=== PATIENT | female | born 1980 | race Caucasian/White ===

== ENCOUNTER 2016-05-10 05:13 | Day surgery (SDC) | payer OTHER ==
[~2016-05-10] VITALS: Ht 170.2 cm; Wt 124.8 kg
[~2016-05-10 05:13] MED LIST: CYCL1TAB29 PO; PRED5PAK PO; TYLETAB34 PO
[2016-05-10] MEDS ORDERED: APREPITANT 40 MG CAP PO SCH (05:45)
[2016-05-10] MEDS ORDERED: INSULIN HUMAN REGULAR 1,000 UNITS/10 ML VIAL SQ PRN (05:45)
[2016-05-10] MEDS ORDERED: VITA100064 PO (06:18)
[2016-05-10] MEDS ORDERED: FOLI400T PO (06:18)
[2016-05-10 06:20] VITALS: BP 137/79; PULSE 69; RESP 20; TEMP 98.4; O2SAT 97
[2016-05-10] MEDS ORDERED: ACETAMINOPHEN 1000 MG/100 ML VIAL IV SCH (06:30)
[2016-05-10] MEDS ORDERED: metroNIDAZOLE 500 MG INJ 100 ML IV SCH (06:30)
[2016-05-10] MEDS ORDERED: ceFAZolin 2 GM PREMIX 50 ML IV SCH (06:30)
[2016-05-10] MEDS ORDERED: ONDANSETRON HCL 4 MG/2 ML VIAL IV PUSH SCH (06:30)
[2016-05-10] MEDS ORDERED: SCOPOLAMINE 1.5 MG PATCH T-DERMAL SCH (06:30)
[2016-05-10] MEDS ORDERED: BUPIVACAINE/EPINEPHRINE 0.25% PF 30 ML VIAL ONE (07:00)
[2016-05-10] MEDS ORDERED: METHYLENE BLUE 10 MG/ML VIAL ONE (07:01)
[2016-05-10] MEDS ORDERED: fentaNYL CITRATE 250 MCG/5 ML AMP ONE (07:02)
[2016-05-10] MEDS ORDERED: MIDAZOLAM HCL 2 MG/2 ML VIAL ONE (07:02)
[2016-05-10] MEDS ORDERED: FAMOTIDINE 20 MG/2 ML VIAL ONE (07:02)
[2016-05-10] MEDS ORDERED: DEXAMETHASONE SOD PHOS 4 MG/ML VIAL ONE (07:03)
[2016-05-10] MEDS ORDERED: SODIUM CHLORID 0.9% 500 ML IV SCH (07:30)
[2016-05-10] MEDS ORDERED: LACTATED RINGER'S 1000 ML IV SCH (07:30)
[2016-05-10] MEDS ORDERED: BUPIVACAINE/EPINEPHRINE 0.25% PF 30 ML VIAL INFIL ONE (07:48)
[2016-05-10] MEDS ORDERED: METHYLENE BLUE 100 MG/10 ML VIAL IV ONE (07:48)
[2016-05-10] MEDS ORDERED: ONDANSETRON HCL 4 MG/2 ML VIAL IV PRN ×2 (08:45→09:00)
[2016-05-10] MEDS ORDERED: SODIUM CHLORIDE 0.9% FLUSH 5 ML FLUSH IVF PRN (08:45)
[2016-05-10] MEDS ORDERED: Post-op Orders (for Pharmacy) MISC XX ONE (08:55)
[2016-05-10] MEDS ORDERED: SODIUM CHLORIDE 0.9% FLUSH 5 ML FLUSH IVF SCH (09:00)
[2016-05-10] MEDS ORDERED: ACETAMINOPHEN 325MG/HYDROcodone 7.5MG/15ML UDC PO PRN ×2 (09:00)
[2016-05-10] MEDS ORDERED: PANTOPRAZOLE SOD 40 MG DELAYED RELEASE TAB PO SCH (09:00)
[2016-05-10] MEDS ORDERED: HYDROmorphone HCL PF 1 MG/ML VIAL IV PUSH PRN (09:00)
[2016-05-10] MEDS ORDERED: ACETAMINOPHEN 1000 MG/100 ML VIAL IV PRN (09:00)
[2016-05-10] MEDS ORDERED: D5-1/2 NS + KCL 20 MEQ INJ 1,000 ML IV SCH (09:00)
[2016-05-10] MEDS ORDERED: diphenhydrAMINE HCL 50 MG/ML VIAL IV PRN (09:00)
[2016-05-10] MEDS ORDERED: diphenhydrAMINE HCL ELIXIR 12.5 MG/5 ML CUP PO PRN (09:00)
[2016-05-10] MEDS ORDERED: PANTOPRAZOLE SODIUM 40 MG VIAL IVP PRN (09:00)
[2016-05-10] MEDS ORDERED: *morphine SULFATE 8 MG/ML PERIprocedure ONLY ONE ×3 (09:08→10:42)
[2016-05-10] MEDS ORDERED: *PROMETHAZINE 25 MG/ML VIAL PERIprocedural use ONLY ONE (09:10)
[2016-05-10] MEDS: METOCLOPRAMIDE HCL 10 MG/2 ML VIAL IVS SCH ×2 (10:10→15:15)
[2016-05-10] MEDS ORDERED: *RESP: ALBUTEROL 2.5 MG/3 ML NEB (PRN) PERIprocedural Use ONLY NEB ONE (11:21)
[2016-05-10] MEDS ORDERED: NEOSTIGMINE 3 MG/3 ML SYR IV ONE (12:00)
[2016-05-10] MEDS ORDERED: PROPOFOL 200 MG/20 ML AMP IV ONE (12:00)
[2016-05-10] MEDS ORDERED: LACTATED RINGER'S 1000 ML INJ 1,000 ML IV ONE (12:00)
[2016-05-10] MEDS ORDERED: ONDANSETRON HCL 4 MG/2 ML VIAL IV PUSH ONE (12:00)
[2016-05-10] MEDS ORDERED: ENOXAPARIN SODIUM 40 MG/0.4 ML SYRINGE SQ SCH (13:00)
[2016-05-10 14:25] VITALS: BP 124/84; PULSE 75; RESP 16; TEMP 97.9; O2SAT 94
[2016-05-11] MEDS ORDERED: METOCLOPRAMIDE HCL 10 MG/2 ML VIAL IVS PRN (09:00)
--- NOTE | 2016-05-15 12:37 | MP ---
cc: NICK FAUSTIN DATE OF 1980 DATE OF OPERATION 05/10/2016 PREOPERATIVE DIAGNOSIS Morbid obesity with a BMI of 43. POSTOPERATIVE DIAGNOSIS Morbid obesity with a BMI of 43. PROCEDURE Laparoscopic vertical sleeve gastrectomy over 36-Emirati ViSiGi bougie. SURGEON Nick Faustin MD ANESTHESIA General endotracheal anesthesia. ESTIMATED BLOOD LOSS Scant. FINDINGS Fatty liver. SPECIMENS None. COMPLICATIONS None. PROCEDURE IN DETAIL The patient was brought to the operating room and placed on the operating table in supine position, bilateral sequential inflation device placed on lower extremities. General anesthesia was instituted. Antibiotics was initiated. The abdomen was prepped and draped sterilely. A point 15 cm distal to the xiphoid in the midline was anesthetized with 0.25% Marcaine with epinephrine. A skin incision was made, 5-mm OptiView port placed under direct vision and pneumoperitoneum created. Under direct vision, three 5-mm left upper quadrant, a 15-mm right upper quadrant, 5-mm right upper quadrant ports placed. Prior to placement of all ports the skin and peritoneum were anesthetized with 0.25% Marcaine with epinephrine. The patient was placed in reverse Trendelenburg position left side up, the Iman-Flex retractor was placed. The left lobe of the liver was retracted. The vasculature along the greater curvature of the stomach was using harmonic scalpel starting a distance 5-cm proximal to the pylorus and carried towards the angle of His. The angle of His was taken down bluntly. Posterior ligamentous attachments were sharply . A 36-Emirati ViSiGi bougie was placed at the start of the case, was placed on suction. Division of the stomach started 5 cm proximal to the pylorus and carried towards the angle of His to completely excise approximately 80% of the stomach. This was performed using an [place] Flex stapler at the pylorus. The first firing was with a black load, followed by a green load and four gold loads. All staple loads were reinforced with SeamGuard. A distance of 2 cm was left from the angle incisura and the staple line and a distance of 1 cm left from the GE junction and the staple line. The pylorus was then occluded, methylene blue tinged saline was instilled. There was no evidence of extravasation. The gastrocolic ligament was then sutured to the posterior leaflet of the SeamGuard using a 2-0 Vicryl suture in a running manner. Bleeding points were controlled with Evicel. The excised stomach was removed from the peritoneal cavity through the 15-mm port site in an Endopouch. The fascia at the 15-mm port site was approximated with 0 Vicryl suture. The CO2 was then released, all ports were removed, all skin incisions closed with 4-0 Monocryl. The abdominal wall was cleaned. A sterile dressing was placed. The patient was awakened and taken to the recovery room. MD NOLBERTO Bronson/SSB /11:55 AM /12:33 PM
--- NOTE | 2016-06-22 16:24 | HHI.DS ---
Discharge Summary Admission Date Discharge Date: May 10, 2016 Admitting Diagnosis Brief History 35-year-old female status post laparoscopic vertical sleeve gastrectomy PE at Discharge Alert and awake Cardio: Regular rate and rhythm Respiratory: Clear to auscultation bilaterally Abdomen: Japanese sites clean dry and intact; postop tenderness Hospital Course This is a 35-year-old female with a BMI greater than 40. Hypertension. The patient had a laparoscopic vertical sleeve gastrectomy. The patient's pain was controlled using oral pain medication. The patient was able to tolerate a bariatric liquid diet. The patient will follow in the office as indicated on the discharge information. This is Tatyana ACOSTA acting as scribe for Dr. Trenton Arellano Pt Condition on Discharge: Good Discharge Disposition: Discharge Home Discharge Instructions DIET: Follow Instructions for: Full Liquid Diet Additional Diet Instructions: SEE ADDITIONAL INSTRUCTIONS Activities you can perform: See Additionl Instruction Activities to Avoid: Lifting/Bending, Weight Bearing, Driving Robyn Anthony Jun 22, 2016 16:24
== END 2016-05-10 16:57 | disposition home or self-care (01) ==
LOC: HSDC 05:13
PROVIDERS: ATTEND Surgery
DX: E66.01 Morbid (severe) obesity due to excess calories (principal); Z68.41 Body mass index [BMI] 40.0-44.9, adult
CPT/HCPCS: 00797; 43775; 94664; J0131; J0690; J1100; J1650; J2250; J2270; J2405; J2550; J2710; J2765; J3010; J3480; J7120; J7613; J8501

== ENCOUNTER 2016-06-29 20:41 | Emergency (ER) | payer OTHER ==
[~2016-06-29] VITALS: Ht 170.2 cm; Wt 104.5 kg
[~2016-06-29 20:41] MED LIST changes: -CYCL1TAB29 PO; +FOLI400T PO; -PRED5PAK PO; -TYLETAB34 PO; +VITA100064 PO
[2016-06-29 20:44] VITALS: BP 139/76; PULSE 78; RESP 16; TEMP 98.6; O2SAT 99
[2016-06-29] MEDS ORDERED: SODIUM CHLOR 0.9% 1000 ML INJ 1,000 ML IV SCH ×2 (21:06→22:54)
[2016-06-29] MEDS ORDERED: ONDANSETRON HCL 4 MG/2 ML VIAL IVP ONE (21:15)
[2016-06-29] MEDS ORDERED: MORPHINE SULFATE 4 MG/ML INJ IV PUSH ONE (21:15)
[2016-06-29] MEDS ORDERED: MULT1TAB84 PO (21:16)
[2016-06-29] MEDS ORDERED: OYST500T77 PO (21:16)
[2016-06-29] MEDS ORDERED: PROT40TA PO (21:16)
[2016-06-29] MEDS ORDERED: METH5000 SL (21:16)
[2016-06-29] MEDS ORDERED: KETOROLAC TROMETHAMINE 30 MG/ML (IVP) VIAL IV PUSH ONE (21:45)
[2016-06-29 21:52] LABS: AUTOMATED NEUTROPHIL # 3.8 TH/MM3 (1.8-7.7); BASOPHIL # 0.1 TH/MM3 (0-0.2); BASOPHIL % 0.7 % (0.0-2.0); EOSINOPHIL # 0.1 TH/MM3 (0-0.4); EOSINOPHIL % 1.2 % (0.0-4.0); HEMO FLAGS DIFF FINAL; LYMPH % 32.7 % (9.0-44.0); LYMPHOCYTE # 2.2 TH/MM3 (1.0-4.8); MEAN CELL VOLUME 83.6 FL (80.0-100.0); MEAN CORPUSCULAR HEMOGLOBIN 28.8 PG (27.0-34.0); MEAN CORPUSCULAR HGB CONC 34.5 % (32.0-36.0); MONO % 8.7 % (0.0-8.0); NEUT % 56.7 % (16.0-70.0); PLATELET COUNT 267 TH/MM3 (150-450); RED BLOOD COUNT 4.79 MIL/MM3 (4.00-5.30); RED CELL DISTRIBUTION WIDTH 15.4 % (11.6-17.2); WHITE BLOOD COUNT 6.7 TH/MM3 (4.0-11.0)
[2016-06-29 22:00] LABS: ANION GAP 13 MEQ/L (5-15); AST (GOT) 13 U/L (15-37); BLOOD UREA NITROGEN 10 MG/DL (7-18); CHLORIDE 105 MEQ/L (98-107); GLOMERULAR FILTRATION RATE 87 ML/MIN (>89); POTASSIUM 3.4 MEQ/L (3.5-5.1); SODIUM (NA) 140 MEQ/L (136-145)
[2016-06-29 22:05] LABS: ALKALINE PHOSPHATASE 100 U/L (45-117); ALT (GPT) 23 U/L (10-53); BETA HCG QUANT LESS THAN 1 MIU/ML (0-5); TOTAL BILIRUBIN ADULT 0.5 MG/DL (0.2-1.0)
--- NOTE | 2016-06-29 22:20 | PD ---
HPI Chief Complaint: Flank/Kidney Pain Time Seen by Provider: 22:17 Travel History International Travel<30 days: No Contact w/Intl Traveler<30days: No Traveled to known affect area: No History of Present Illness HPI 35-year-old female that presents to the ED for evaluation of right flank pain. Per patient she's had this for about 2-3 hours now. Per patient she has a history of a gastric sleeve done by Dr. Fernandez on April. Per patient she' s had no issues until today. Per patient she is concerned she might have something with her gallbladder as she knows that sometimes this can be a complication of the procedure. She states that the pain stays mainly on the right flank but when she points of the flank she points more to the right lower quadrant as well as to the side of the body. She denies any pain in the left side. Per patient she has no history of kidney stones or any surgery other than the gastric sleeve. She still has her appendix and gallbladder. She states that the pain is severe sharp 8 out of 10 and seems to come and go. No position makes her better or worse. Per patient she also feels nauseous. She has not seen anybody for this. She denies any trauma. No blood in the urine. No changes in bowel movement. Denies positive . No vaginal discharge. She has not been able to take anything for it but she states that she was just on her way to work here when this started. PFSH Past Medical History Bipolar Disorder: Yes Diminished Hearing: No Psychiatric: Yes (BIPOLAR) Integumentary: Yes (PREVIOUS INFECTION SAME FINGER 1 YEAR AGO) Immunizations Current: Yes ?: Not LMP: 06/21 Past Surgical History AICD: No Joint Replacement: No Pacemaker: No Other Surgery: Yes (gastric sleeve) Social History Alcohol Use: No (not since gastric sleeve) Tobacco Use: No (quit Nov) Substance Use: No Allergies-Medications (Allergen,Severity, Reaction): Coded Allergies: No Known Allergies (Verified , 06/29/16) Reported Meds & Prescriptions Reported Meds & Active Scripts Active Flomax (Tamsulosin HCl) 0.4 Mg Cap 0.4 Mg PO HS Zofran (Ondansetron HCl) 4 Mg Tab 4 Mg PO Q6HR PRN Lortab (Hydrocodone-Acetaminophen) 5-325 Mg Tab 1 Tab PO Q6H PRN Reported Oyster-[place] 500 (Calcium) 500 Mg Tab 500 Mg PO DAILY Multivitamin Adults (Multiple Vitamins W/ Minerals) 1 Tab 1 Tab PO DAILY B-12 Quick Dissolve (Methylcobalamin Odt) 5,000 Mcg Tab 5,000 Mcg SL DAILY Protonix (Pantoprazole Sodium) 40 Mg Tab 40 Mg PO DAILY Folic Acid 400 Mcg Tab 400 Mcg PO DAILY Vitamin D (Cholecalciferol) 1,000 Unit Tab 1,000 Units PO DAILY Review of Systems Except as stated in HPI: all other systems reviewed are Neg Physical Exam Narrative GENERAL: SKIN: Warm and dry. HEAD: Atraumatic. Normocephalic. EYES: Pupils equal and round. No scleral icterus. No injection or drainage. ENT: No nasal bleeding or discharge. Mucous membranes pink and moist. Tongue is midline. No uvula deviation. NECK: Trachea midline. No JVD. CARDIOVASCULAR: Regular rate and rhythm. No murmurs, S3, S4. RESPIRATORY: No accessory muscle use. Clear to auscultation. Breath sounds equal bilaterally. GASTROINTESTINAL: Abdomen soft, non-tender, nondistended. Hepatic and splenic margins not palpable. No obvious CVA tenderness noted. MUSCULOSKELETAL: Extremities without clubbing, cyanosis, or edema. No obvious deformities. Full range of motion of the upper and lower extremities bilaterally. 2+ pulses bilaterally. NEUROLOGICAL: Awake and alert. No obvious cranial nerve deficits. Motor grossly within normal limits. Five out of 5 muscle strength in the arms and legs. Normal speech. PSYCHIATRIC: Appropriate mood and affect; insight and judgment normal. Data Data Last Documented VS Vital Signs Date Time Temp Pulse Resp B/P Pulse Ox O2 Delivery O2 Flow Rate FiO2 06/29/16 20:44 98.6 78 16 139/76 99 Orders Complete Blood Count With Diff (06/29/16 21:06) Comprehensive Metabolic Panel (06/29/16 21:06) Lipase (06/29/16 21:06) Urinalysis - C+S If Indicated (06/29/16 21:06) Iv Access Insert/Monitor (06/29/16 21:06) Morphine Inj (Morphine Inj) (06/29/16 21:15) Ondansetron Inj (Zofran Inj) (06/29/16 21:15) Sodium Chlor 0.9% 1000 Ml Inj (Ns 1000 M (06/29/16 21:06) Ed Urine Pregnancytest Poc (06/29/16 21:06) Ed Poc Ultrasound (06/29/16 ) Ct Abd/Pel W/O Iv Contrast (06/29/16 ) Ketorolac Inj (Toradol Inj) (06/29/16 21:45) Beta Hcg (Quant/Titer) (06/29/16 21:05) Labs Laboratory Tests Test 06/29/16 21:05 White Blood Count 6.7 TH/MM3 Red Blood Count 4.79 MIL/MM3 Hemoglobin 13.8 GM/DL Hematocrit 40.0 % Mean Corpuscular Volume 83.6 FL Mean Corpuscular Hemoglobin 28.8 PG Mean Corpuscular Hemoglobin 34.5 % Concent Red Cell Distribution Width 15.4 % Platelet Count 267 TH/MM3 Mean Platelet Volume 8.6 FL Neutrophils (%) (Auto) 56.7 % Lymphocytes (%) (Auto) 32.7 % Monocytes (%) (Auto) 8.7 % Eosinophils (%) (Auto) 1.2 % Basophils (%) (Auto) 0.7 % Neutrophils # (Auto) 3.8 TH/MM3 Lymphocytes # (Auto) 2.2 TH/MM3 Monocytes # (Auto) 0.6 TH/MM3 Eosinophils # (Auto) 0.1 TH/MM3 Basophils # (Auto) 0.1 TH/MM3 CBC Comment DIFF FINAL Differential Comment Sodium Level 140 MEQ/L Potassium Level 3.4 MEQ/L Chloride Level 105 MEQ/L Carbon Dioxide Level 22.0 MEQ/L Anion Gap 13 MEQ/L Blood Urea Nitrogen 10 MG/DL Creatinine 0.75 MG/DL Estimat Glomerular Filtration 87 ML/MIN Rate Random Glucose 85 MG/DL Calcium Level 9.3 MG/DL Total Bilirubin 0.5 MG/DL Aspartate Amino Transf 13 U/L (AST/SGOT) Alanine Aminotransferase 23 U/L (ALT/SGPT) Alkaline Phosphatase 100 U/L Total Protein 7.3 GM/DL Albumin 3.6 GM/DL Lipase 152 U/L Human Chorionic Gonadotropin, LESS THAN 1 Quant MIU/ML MDM Medical Decision Making Medical Screen Exam Complete: Yes Emergency Medical Condition: Yes Medical Record Reviewed: Yes Interpretation(s) CBC & BMP Diagram 06/29/16 21:05 LFTs WNL BETA NEGATive Last Impressions Abdomen/Pelvis CT 06/29/16 0000 Signed Impressions: Service Date/Time: June 22:10 - CONCLUSION: Slight hydronephrosis in the right kidney due to a 3 mm right proximal ureteral stone. Tatyana Holden MD Differential Diagnosis Kidney stone versus ureterolithiasis versus pyelonephritis versus flank pain Narrative Course 35-year-old female that presents to the ED for evaluation of right kidney pain. Patient was properly examined and was found to have signs and symptoms consistent with appears to be possible kidney stone. Case was discussed in my attending Dr. Cha who evaluated the patient with me and agrees with plan. Labs and imaging ordered. Patient was given IV pain medications. Labs and imaging showed what appears to be right ureteral stone. Case was discussed in my attending who agrees with plan. Urine still pending at the signing of this note. Patient will likely be sent discharged home with prescriptions for Lortab , Flomax, Zofran. Patient was told that the stone will likely pass on its own. She was given a note for work. Follow-up with PCP. See ED for worsening symptoms. Diagnosis Primary Impression: Ureteral stone with hydronephrosis Patient Instructions: General Instructions, Narcotic given in the ED Departure Forms: Tests/Procedures, Work Release Enter return to work date: Jul 01, 2016 Additional Instructions: Take medications as prescribed. Follow-up with PCP. See ED for any worsening symptoms. Do not drink or drive while taking pain medication. Apply ice or heat as needed for pain Med/Other Pt SpecificInfo: Prescription(s) given Scripts Tamsulosin (Flomax)0.4 Mg Cap0.4 Mg PO HS #20 CAP Ref 0 Prov:Terry Cha MD 06/29/16 Ondansetron (Zofran)4 Mg Tab4 Mg PO Q6HR PRN (NAUSEA OR VOMITING) #20 TAB Prov:Terry Cha MD 06/29/16 Hydrocodone-Acetaminophen (Lortab)5-325 Mg Tab1 Tab PO Q6H PRN (PAIN) #20 TAB Prov:Terry Cha MD 06/29/16 Disposition: 01 DISCHARGE HOME Condition: Stable Zacarias Gage Jun 29, 2016 22:20
--- NOTE | 2016-06-29 22:33 | RADRPT ---
EXAM DATE/TIME: 06/29/2016 22:10 [facility] COMPARISON: No previous studies available for comparison. INDICATIONS : Right flank pain. ORAL CONTRAST: No oral contrast ingested. RADIATION DOSE: 22.51 CTDIvol (mGy) MEDICAL HISTORY : None SURGICAL HISTORY : Gastric bypass. ENCOUNTER: Initial ACUITY: 1 day PAIN SCALE: 7/10 LOCATION: Right flank TECHNIQUE: Volumetric scanning of the abdomen and pelvis was performed. Using automated exposure control and ad justment of the mA and/or kV according to patient size, radiation dose was kept as low as reasonably achievable to obtain optimal diagnostic quality images. FINDINGS: CT Abdomen: The liver, spleen, pancreas, left kidney adrenals are unremarkable. There is a small 3 mm stone in the right proximal ureter causing slight hydronephrosis. There is vague haziness in the sub cutaneous tissues of the anterior abdominal wall on the right could be inflammatory and/or traumatic. There is no evidence for any appreciable pathological adenopathy, free fluid, or bowel obstruction. There is evidence for prior gastric bypass. There is low attenuating fat insertion site of the falci form ligament. Small splenic splenule is seen. CT pelvis: There is no evidence for mass, abscess formation, or any significant adenopathy within the pelvis. CONCLUSION: Slight hydronephrosis in the right kidney due to a 3 mm right proximal ureteral stone . Tatyana Holden MD on June 29, 2016 at 22:27 Board Certified Radiologist. This report was verified electronically.
[2016-06-29] MEDS ORDERED: ZOFR4TAB PO (22:52)
[2016-06-29] MEDS ORDERED: HYDR-3533 PO (22:52)
[2016-06-29] MEDS ORDERED: TAMS5CAP PO (22:52)
--- NOTE | 2016-06-29 22:53 | PD ---
Data Data Last Documented VS Vital Signs Date Time Temp Pulse Resp B/P Pulse Ox O2 Delivery O2 Flow Rate FiO2 06/29/16 20:44 98.6 78 16 139/76 99 Orders Complete Blood Count With Diff (06/29/16 21:06) Comprehensive Metabolic Panel (06/29/16 21:06) Lipase (06/29/16 21:06) Urinalysis - C+S If Indicated (06/29/16 21:06) Iv Access Insert/Monitor (06/29/16 21:06) Morphine Inj (Morphine Inj) (06/29/16 21:15) Ondansetron Inj (Zofran Inj) (06/29/16 21:15) Sodium Chlor 0.9% 1000 Ml Inj (Ns 1000 M (06/29/16 21:06) Ed Urine Pregnancytest Poc (06/29/16 21:06) Ed Poc Ultrasound (06/29/16 ) Ct Abd/Pel W/O Iv Contrast (06/29/16 ) Ketorolac Inj (Toradol Inj) (06/29/16 21:45) Beta Hcg (Quant/Titer) (06/29/16 21:05) Labs Laboratory Tests Test 06/29/16 21:05 White Blood Count 6.7 TH/MM3 Red Blood Count 4.79 MIL/MM3 Hemoglobin 13.8 GM/DL Hematocrit 40.0 % Mean Corpuscular Volume 83.6 FL Mean Corpuscular Hemoglobin 28.8 PG Mean Corpuscular Hemoglobin 34.5 % Concent Red Cell Distribution Width 15.4 % Platelet Count 267 TH/MM3 Mean Platelet Volume 8.6 FL Neutrophils (%) (Auto) 56.7 % Lymphocytes (%) (Auto) 32.7 % Monocytes (%) (Auto) 8.7 % Eosinophils (%) (Auto) 1.2 % Basophils (%) (Auto) 0.7 % Neutrophils # (Auto) 3.8 TH/MM3 Lymphocytes # (Auto) 2.2 TH/MM3 Monocytes # (Auto) 0.6 TH/MM3 Eosinophils # (Auto) 0.1 TH/MM3 Basophils # (Auto) 0.1 TH/MM3 CBC Comment DIFF FINAL Differential Comment Sodium Level 140 MEQ/L Potassium Level 3.4 MEQ/L Chloride Level 105 MEQ/L Carbon Dioxide Level 22.0 MEQ/L Anion Gap 13 MEQ/L Blood Urea Nitrogen 10 MG/DL Creatinine 0.75 MG/DL Estimat Glomerular Filtration 87 ML/MIN Rate Random Glucose 85 MG/DL Calcium Level 9.3 MG/DL Total Bilirubin 0.5 MG/DL Aspartate Amino Transf 13 U/L (AST/SGOT) Alanine Aminotransferase 23 U/L (ALT/SGPT) Alkaline Phosphatase 100 U/L Total Protein 7.3 GM/DL Albumin 3.6 GM/DL Lipase 152 U/L Human Chorionic Gonadotropin, LESS THAN 1 Quant MIU/ML MDM Supervised Visit with ABDULLAHI: Yes Narrative Course The history, exam, and medical decision-making in the associated mid-level provider note were completed with my assistance. I reviewed and agree with the findings presented. I attest that I had a [id number] encounter with the patient on the same day, and personally performed and documented my assessment and findings in the medical record. *My assessment and Findings: 35-year-old woman presents to the emergency department with right flank pain, abrupt in onset times today. She had some nausea with it. She is a history of gastric sleeve. She looks uncomfortable. She is some mild right lower quadrant tenderness. Symptoms are suggestive of renal stone or ovarian torsion. Doubt appendicitis or cholecystitis. She has no right upper quadrant tenderness. Bedside ultrasound showed right kidney hydronephrosis. Patient should've for kidney stone and CT confirms small ureterolithiasis on the right. Patient will be treated as an outpatient. Procedures Procedure Narrative Point of care ultrasound: Focus transabdominal ultrasounds performed by me at the bedside to evaluate for evidence of ureterolithiasis. Focus examination of the right kidney revealed mild hydronephrosis in the right kidney. I was unable to save any images due to connectivity issues with the ultrasound. Terry Cha MD Jun 29, 2016 22:53
[2016-06-30 00:08] LABS: BLOOD, URINE LARGE (NEG); CALCIUM OXALATE CRYSTALS,URINE OCC /hpf; COMMENT (UR) CULTURE INDICATED; CULTURE IF INDICATED CULTURE INDICATED; GLUCOSE,URINE NEG (NEG); KETONE, URINE 150 mg/dL (NEG); MUCUS URINE MANY /lpf (OCC); NITRITE,URINE NEG (NEG); SQUAMOUS EPITHELIAL CELL URINE 25 /hpf (0-5); URINE COLOR YELLOW (YELLW/STRAW)
== END 2016-06-30 00:52 | disposition home or self-care (01) ==
LOC: NEPC 20:41
DX: N13.2 Hydronephrosis with renal and ureteral calculous obstruction (principal)
CPT/HCPCS: 74176; 80053; 81001; 83690; 84702; 84703; 85025; 87086; 96361; 96374; 96375; 99284; J1885; J2270; J2405; J7030